=== PATIENT | male | born 1970 | race Caucasian/White ===

== ENCOUNTER 2022-10-26 10:24 | Emergency (ER) | payer BC, OTHER ==
[2022-10-26] MEDS ORDERED: Acetaminophen/oxyCODONE 325-5 MG Tab PO ONE (11:22)
[2022-10-26] MEDS ORDERED: Ondansetron 4 MG Tab.DIS PO ONE (11:23)
[2022-10-26] MEDS ORDERED: Lidocaine 1% 5 ML VIAL INJECT ONE ×2 (11:23→15:40)
[2022-10-26] MEDS ORDERED: Bupivacaine 0.25% 10 ML SDV INJECT ONE (11:23)
[2022-10-26] MEDS ORDERED: Diphtheria,Pertussis(Acell),Tetanus Vaccine 0.5 ML Syringe IM ONE (13:07)
[2022-10-26] MEDS ORDERED: Lidocaine 1% 5 ML VIAL ONE (15:08)
[2022-10-26] MEDS ORDERED: cefTRIAXone 1 GM in Sodium Chloride 0.9% 100 ML IV ONE (15:15)
[2022-10-26] MEDS ORDERED: Sodium Chloride 0.9% 10 ML Syringe FLUSH PRN (15:15)
[2022-10-26] MEDS ORDERED: Ketorolac 15 MG/ML SDV IVPUSH ONE (15:17)
[2022-10-26] MEDS ORDERED: Bacitracin/Neomycin/Polymyxin B Oint 0.9 GM U/D Packet TOP ONE (16:45)
[2022-10-26] MEDS ORDERED: Bacitracin Oint 1 GM U/D Packet TOP ONE (16:46)
== END 2022-10-26 17:12 | disposition home or self-care (01) ==
LOC: LL.ED 10:24
DX: S61.412A Laceration without foreign body of left hand, initial encounter (principal); Z23 Encounter for immunization; W26.8XXA Contact with other sharp object(s), not elsewhere classified, initial encounter; Y92.513 Shop (commercial) as the place of occurrence of the external cause; Y99.0 Civilian activity done for income or pay
CPT/HCPCS: 12002; 90471; 90715; 96365; 96375; 99283-25; A9270-GY; J0696; J1885; J3490